=== PATIENT | male | born 1995 | race Caucasian/White ===

== ENCOUNTER → 2016-08-11 | Outpatient (REF) | payer BC ==
[2016-08-11 12:09] LABS: ALBUMIN 4.4 GM/DL (3.2-5.2); ALBUMIN/GLOBULIN RATIO 1.26 (1.00-1.93); ALKALINE PHOSPHATASE 69 U/L (45-117); ALT/SGPT 83 U/L (12-78); ANION GAP 11 MEQ/L (8-16); AST/SGOT 47 U/L (15-37); BILIRUBIN,TOTAL 0.6 MG/DL (0.2-1.0); BLOOD UREA NITROGEN 16 MG/DL (7-18); CARBON DIOXIDE LEVEL 26 MEQ/L (21-32); CHLORIDE LEVEL 105 MEQ/L (98-107); CHOLESTEROL LEVEL 258 MG/DL (<200); CREATININE FOR GFR 1.07 MG/DL (0.70-1.30); GLOMERULAR FILTRATION RATE > 60.0 (>60); GLUCOSE, FASTING 86 MG/DL (70-105); POTASSIUM SERUM 4.1 MEQ/L (3.5-5.1); SODIUM LEVEL 142 MEQ/L (136-145); TOTAL PROTEIN 7.9 GM/DL (6.4-8.2); TRIGLYCERIDES LEVEL 206 MG/DL (<150)
== END ==
LOC: M LABDRAW1 11:10
PROVIDERS: ATTEND Physician Assistant
DX: E78.2 Mixed hyperlipidemia (principal)

== ENCOUNTER → 2016-11-09 | Outpatient (REF) | payer BC ==
[2016-11-09 12:57] LABS: ALBUMIN 4.1 GM/DL (3.2-5.2); ALBUMIN/GLOBULIN RATIO 1.17 (1.00-1.93); ALKALINE PHOSPHATASE 68 U/L (45-117); ALT/SGPT 56 U/L (12-78); ANION GAP 8 MEQ/L (8-16); AST/SGOT 36 U/L (15-37); BILIRUBIN,TOTAL 0.6 MG/DL (0.2-1.0); BLOOD UREA NITROGEN 13 MG/DL (7-18); CARBON DIOXIDE LEVEL 28 MEQ/L (21-32); CHLORIDE LEVEL 104 MEQ/L (98-107); CHOLESTEROL LEVEL 232 MG/DL (<200); CREATININE FOR GFR 0.98 MG/DL (0.70-1.30); GLOMERULAR FILTRATION RATE > 60.0 (>60); GLUCOSE, FASTING 87 MG/DL (70-105); POTASSIUM SERUM 4.1 MEQ/L (3.5-5.1); SODIUM LEVEL 140 MEQ/L (136-145); TOTAL PROTEIN 7.6 GM/DL (6.4-8.2); TRIGLYCERIDES LEVEL 223 MG/DL (<150)
== END ==
LOC: M LABDRAW1 11:49
PROVIDERS: ATTEND Family Medicine

== ENCOUNTER 2016-12-08 14:19 | Emergency (ER) | payer BC ==
[~2016-12-08] VITALS: Ht 182.9 cm; Wt 117.9 kg
[2016-12-08] MEDS ORDERED: BUPR150T3 PO (14:39)
[2016-12-08] MEDS ORDERED: LANS30CA PO (14:39)
[2016-12-08] MEDS ORDERED: VITA50003 PO (14:39)
[2016-12-08] MEDS ORDERED: ESCI10TA2 PO (14:39)
[2016-12-08] MEDS ORDERED: VITA10006 PO (14:39)
[2016-12-08] MEDS ORDERED: MULT1CHW39 PO (14:39)
[2016-12-08] MEDS ORDERED: FISH1000 PO (14:39)
--- NOTE | 2016-12-08 15:13 | REP ---
Chest one-view HISTORY: Chest pain Comparison: None The lungs are clear. The heart is normal in size. The pulmonary vasculature is normal in appearance. Impression: No acute disease. Signed by Francis Vieyra MD 12/08/2016 03:05 P
[2016-12-08] MEDS ORDERED: holter monitor (17:00)
[2016-12-08] MEDS ORDERED: mis (17:00)
[2016-12-08 17:16] VITALS: BP 137/70
--- NOTE | 2016-12-10 14:35 | ECGEPIP ---
Stationary ECG Study [facility] - ED Test Date: 2016-12-08 Pat Name: RUBA HERNANDEZ Department: Room: - Gender: M Health Care Sanitary Technician: gabriel : 1995 Requested By: WESLEY Colby Order Number: [id number] Reading MD: Francoies Padron Measurements Intervals [place] Rate: 61 P: 51 MO: 198 QRS: 51 QRSD: 98 T: 29 QT: 411 QTc: 415 Interpretive Statements SINUS RHYTHM WITH MARKED SINUS ARRHYTHMIA Electronically Signed On 12-10-2016 14:35:33 EDT by Francoise Padron
== END 2016-12-08 17:18 | disposition home or self-care (01) ==
LOC: EDBD 14:19 → M ED 15:21
DX: R00.2 Palpitations (principal)

== ENCOUNTER → 2016-12-20 | Outpatient (CLI) | payer BC ==
[~2016-12-20] MED LIST: BUPR150T3 PO; ESCI10TA2 PO; FISH1000 PO; LANS30CA PO; MULT1CHW39 PO; VITA10006 PO; VITA50003 PO; holter monitor; mis
--- NOTE | 2016-12-28 14:15 | HOLTMON ---
[facility] Test Date: 2016-12-20 Pat Name: RUBA HERNANDEZ Department: Room: - Gender: Territory Sales Manager: CARLA JIMENES : 1995 Requested By: WESLEY Colby Order Number: [id number] Reading MD: Farooq Banda Interpretive Statements Underlying sinus rhythm with rate varying from 34 bpm at 1:08 AM, and 138 bpm at 12:51 PM, averaging 74 bpm. 2 isolated PACs but no PSVT. No ventricular ectopic activity. No significant diurnal bradycardia or pause. The patient made 11 diary entries noting "dizziness, shortness of breath, chest discomfort, and nausea" that did not appear to correlate with any arrhythmia or rate change. Electronically Signed On 12-28-2016 14:15:23 EDT by Farooq Banda
== END ==
LOC: M EKG 12-14 14:13
PROVIDERS: ATTEND Emergency Medicine
DX: R07.9 Chest pain, unspecified (principal)

== ENCOUNTER → 2017-01-29 | Outpatient (REF) | payer BC ==
[2017-01-29 16:25] LABS: FREE T4 0.96 NG/DL (0.76-1.46)
[2017-01-29 16:35] LABS: BASO % 0.3 % (0.0-1.0); EOS # 0.1 K/mm3 (0.0-0.50); EOS % 1.2 % (0.0-3.0); LARGE UNSTAINED CELL # 0.1 K/mm3 (0.0-0.4); LARGE UNSTAINED CELL % 1.3 % (0.0-4.0); LYMPH % 26.8 % (24.0-44.0); MEAN CORPUSCULAR HEMOGLOBIN 31.6 pg (27.0-33.0); MEAN CORPUSCULAR HGB CONC 35.1 g/dl (32.0-36.5); MEAN CORPUSCULAR VOLUME 90.3 fl (80.0-96.0); MONO # 0.4 K/mm3 (0.0-0.8); NEUTROPHILS # 4.8 K/mm3 (1.8-7.7); NEUTROPHILS % 65.3 % (36.0-66.0); PLATELET COUNT, AUTOMATED 191 k/mm3 (150-450); RED CELL DISTRIBUTION WIDTH 12.1 % (11.5-14.5); WHITE BLOOD COUNT 7.3 K/mm3 (4.0-10.0)
== END ==
LOC: M LAB 15:43
PROVIDERS: ATTEND Family Medicine
DX: F41.1 Generalized anxiety disorder (principal)

== ENCOUNTER → 2017-08-23 | Outpatient (REF) | payer BC | LOC: M LAB REF 16:58 | DX: J02.9 Acute pharyngitis, unspecified (principal) | CPT/HCPCS: 87070 ==

== ENCOUNTER → 2017-11-20 | Outpatient (REF) | payer BC | LOC: M LAB REF 17:21 | DX: J03.80 Acute tonsillitis due to other specified organisms (principal) | CPT/HCPCS: 87070 ==

== ENCOUNTER → 2020-10-04 | Outpatient (REF) | payer BC ==
[~2020-10-04] MED LIST changes: +BUPR150T12 PO; -BUPR150T3 PO; +ESCI10TA16 PO; -ESCI10TA2 PO; -MULT1CHW39 PO; +MULT200T7 PO; -VITA50003 PO; +VITA50005 PO
== END ==
LOC: M LAB REF 17:33
PROVIDERS: ATTEND Physician Assistant
DX: J06.9 Acute upper respiratory infection, unspecified (principal)

== ENCOUNTER → 2021-09-09 | Outpatient (CLI) | payer BC | LOC: M SLEEP HO 09:40 | PROVIDERS: ATTEND Physician Assistant | DX: G47.10 Hypersomnia, unspecified (principal) ==

== ENCOUNTER 2024-02-15 16:12 | Inpatient (IN) | payer BC, SELFPAY ==
[~2024-02-15] VITALS: Ht 185.4 cm; Wt 145.9 kg
[~2024-02-15 16:12] MED LIST changes: -ACET1TAB55 PO; -ALPR0.25 PO; -AMOX875T2 PO; -COLA100C5 PO; -GASTROGRAFIN SOLUTION 30ML As Ordered ONE; -ISOVUE-370 76% 100ML VIAL As Ordered ONE; -MIRA33506 PO; -ONETAB9 PO; -PANT40TA29 PO; -PERCOCET PO; -PROB250C PO; -VENL150C43 PO
[2024-02-15] MEDS ORDERED: PANT40TA29 PO (16:27)
[2024-02-15] MEDS: PIPERACILLIN/TAZOBACTAM SOD 3.375 GM in D5W MINI-BAG PLUS 50 ML IV ONE (19:00)
[2024-02-15] MEDS: LORazepam 2 MG/ML 1ML VIAL IV STA (19:01)
[2024-02-15] MEDS: NS 1,000 ML IV ONE (19:01)
[2024-02-15 19:03] LABS: BASO % 0.3 % (0.0-1.0); EOS # 0.2 10^3/uL (0.0-0.5); EOS % 1.9 % (0.0-3.0); HEMATOCRIT 44.9 % (42.0-52.0); HEMOGLOBIN 15.3 g/dl (13.5-17.5); LYMPH # 1.9 10^3/uL (1.5-5.0); LYMPH % 15.8 % (24.0-44.0); MEAN CORPUSCULAR HEMOGLOBIN 30.3 pg (27.0-33.0); MEAN CORPUSCULAR HGB CONC 34.1 g/dl (32.0-36.5); MEAN CORPUSCULAR VOLUME 88.9 fl (80.0-96.0); MONO # 0.8 10^3/uL (0.0-0.8); MONO % 6.9 % (2.0-8.0); NEUTROPHILS # 8.9 10^3/uL (1.5-8.5); NEUTROPHILS % 74.8 % (36.0-66.0); PLATELET COUNT, AUTOMATED 243 10^3/uL (150-450); RED BLOOD COUNT 5.05 10^6/uL (4.30-6.10); WHITE BLOOD COUNT 11.8 10^3/uL (4.0-10.0)
[2024-02-15 19:10] LABS: LIPASE 20 U/L (12-53)
[2024-02-15 19:12] LABS: ALBUMIN 4.2 G/DL (3.2-5.2); ALKALINE PHOSPHATASE 99 U/L (46-116); ALT/SGPT 56 U/L (7.0-40); AST/SGOT 33 U/L (<34); BILIRUBIN,DIRECT 0.2 MG/DL (<0.4); BILIRUBIN,TOTAL 0.6 MG/DL (0.3-1.2); BLOOD UREA NITROGEN 10 MG/DL (9-23); CARBON DIOXIDE LEVEL 27 MMOL/L (20-31); CHLORIDE LEVEL 103 MMOL/L (98-107); CREATININE FOR GFR 0.95 MG/DL (0.70-1.30); GLOMERULAR FILTRATION RATE > 60.0 (>60); GLUCOSE, FASTING 88 MG/DL (60-100); POTASSIUM SERUM 4.3 MMOL/L (3.5-5.1); SODIUM LEVEL 137 MMOL/L (136-145); TOTAL PROTEIN 7.6 G/DL (5.7-8.2)
[2024-02-15] MEDS: NS 1,000 ML IV SCH ×2 (20:40→23:15)
[2024-02-15 20:47] LABS: BASO % 0.3 % (0.0-1.0); EOS # 0.3 10^3/uL (0.0-0.5); EOS % 2.3 % (0.0-3.0); HEMATOCRIT 41.2 % (42.0-52.0); HEMOGLOBIN 14.1 g/dl (13.5-17.5); LYMPH # 2.5 10^3/uL (1.5-5.0); LYMPH % 19.6 % (24.0-44.0); MEAN CORPUSCULAR HEMOGLOBIN 30.3 pg (27.0-33.0); MEAN CORPUSCULAR HGB CONC 34.2 g/dl (32.0-36.5); MEAN CORPUSCULAR VOLUME 88.6 fl (80.0-96.0); MONO # 0.9 10^3/uL (0.0-0.8); MONO % 7.1 % (2.0-8.0); NEUTROPHILS # 8.8 10^3/uL (1.5-8.5); NEUTROPHILS % 70.4 % (36.0-66.0); PLATELET COUNT, AUTOMATED 231 10^3/uL (150-450); RED BLOOD COUNT 4.65 10^6/uL (4.30-6.10); WHITE BLOOD COUNT 12.5 10^3/uL (4.0-10.0)
[2024-02-15] MEDS ORDERED: ALPR0.25 PO (20:55)
[2024-02-15] MEDS ORDERED: VENL150C43 PO (20:55)
[2024-02-15] MEDS ORDERED: ONETAB9 PO (20:55)
[2024-02-15] MEDS ORDERED: HOME MED LIST COMPLETE! XX SCH (21:00)
[2024-02-15] MEDS: HYDROMORPHONE HCL 0.5 MG/ 0.5 ML SYRINGE IV PRN (21:02)
[2024-02-15 21:50] VITALS: BP 139/81; TEMP 98.1; O2SAT 96
[2024-02-16] VITALS (10 sets, daily range): BP systolic 119–146; BP diastolic 74–97; TEMP 97–99.8; O2SAT 92–96
[2024-02-16] MEDS: LORazepam 0.5 MG TAB PO ONE (00:11)
[2024-02-16] MEDS: PIPERACILLIN/TAZOBACTAM SOD 3.375 GM in D5W MINI-BAG PLUS 50 ML IV SCH (00:11)
[2024-02-16] MEDS: NICOTINE 14 MG/24 HR TRANSDERMAL TD PRN (02:52)
[2024-02-16 07:07] LABS: ALBUMIN 3.4 G/DL (3.2-5.2); ALKALINE PHOSPHATASE 91 U/L (46-116); ALT/SGPT 48 U/L (7.0-40); AST/SGOT 27 U/L (<34); BILIRUBIN,TOTAL 0.7 MG/DL (0.3-1.2); BLOOD UREA NITROGEN 11 MG/DL (9-23); CALCIUM LEVEL 8.7 MG/DL (8.5-10.1); CARBON DIOXIDE LEVEL 28 MMOL/L (20-31); CHLORIDE LEVEL 106 MMOL/L (98-107); CREATININE FOR GFR 1.07 MG/DL (0.70-1.30); GLOMERULAR FILTRATION RATE > 60.0 (>60); GLUCOSE, FASTING 87 MG/DL (60-100); POTASSIUM SERUM 4.3 MMOL/L (3.5-5.1); SODIUM LEVEL 139 MMOL/L (136-145); TOTAL PROTEIN 6.6 G/DL (5.7-8.2)
[2024-02-16] MEDS: PANTOPRAZOLE 40MG VIAL IV SCH (07:47)
[2024-02-16] MEDS ORDERED: propofoL 200 MG/20 ML VIAL As Ordered ONE (07:58)
[2024-02-16] MEDS ORDERED: LIDOCAINE 2% 100MG/5ML SDV (FOR ANES.) As Ordered ONE (07:58)
[2024-02-16] MEDS ORDERED: ROCURONIUM BROMIDE 50MG/5ML VIAL As Ordered ONE (07:58)
[2024-02-16] MEDS ORDERED: MIDAZOLAM INJ 2MG/2ML VIAL As Ordered ONE (07:58)
[2024-02-16] MEDS ORDERED: fentaNYL 250 MCG/5 ML INJECTION As Ordered ONE (07:58)
[2024-02-16] MEDS ORDERED: ONDANSETRON 4MG 2ML VIAL As Ordered ONE (08:45)
[2024-02-16] MEDS ORDERED: SUGAMMADEX SODIUM 500 MG/5 ML VIAL (BRIDION) As Ordered ONE (08:52)
[2024-02-16] MEDS ORDERED: ACETAMINOPHEN 1000MG 100ML IV BAG As Ordered ONE (08:52)
[2024-02-16] MEDS ORDERED: KETOROLAC 60MG 2ML VIAL As Ordered ONE (09:07)
[2024-02-16] MEDS ORDERED: INDOCYANINE GREEN 25MG VIAL (IC-GREEN) As Ordered ONE (10:47)
[2024-02-16] MEDS ORDERED: fentaNYL 100 MCG/2 ML INJECTION As Ordered ONE (12:08)
[2024-02-16] MEDS: LR 1,000 ML IV SCH (12:55)
[2024-02-16] MEDS ORDERED: fentaNYL 100 MCG/2 ML INJECTION IV PRN (12:55)
[2024-02-16] MEDS ORDERED: ONDANSETRON 4MG 2ML VIAL IV PRN ×2 (12:55→15:00)
[2024-02-16] MEDS ORDERED: oxyCODONE 5MG TAB PO PRN (12:55)
[2024-02-16] MEDS ORDERED: MEPERIDINE 25 MG/ML 1ML VIAL IV PRN (12:55)
[2024-02-16] MEDS ORDERED: diphenhydrAMINE 50MG/ML VIAL IV PRN (12:55)
[2024-02-16] MEDS ORDERED: HYDROMORPHONE HCL 0.5 MG/ 0.5 ML SYRINGE IV PRN (12:55)
[2024-02-16] MEDS ORDERED: METOCLOPRAMIDE INJ 10MG/2ML VIAL IV PRN (12:55)
[2024-02-16] MEDS ORDERED: ALPRAZolam 0.25 MG TAB PO PRN (14:20)
[2024-02-16] MEDS: ENOXAPARIN 40MG/0.4ML SYRINGE (J1650 PER 10MG) SC SCH (16:05)
[2024-02-16 16:46] LABS: INR 1.06; PROTHROMBIN TIME 13.5 SECONDS (12.5-14.5)
[2024-02-16] MEDS: MORPHINE 2 MG/ML 1ML VIAL IV PRN (17:53)
[2024-02-16] MEDS ORDERED: MIRALAX *UNIT DOSE* 17GM PACKET PO PRN (18:40)
[2024-02-16] MEDS: DOCUSATE SODIUM 100MG CAPSULE PO SCH (20:25)
[2024-02-16] MEDS: VENLAFAXINE **XR** 75MG CAPSULE PO SCH (20:26)
[2024-02-16] MEDS: SENNA 8.6 MG TAB (SENOKOT) PO SCH (20:26)
[2024-02-16] MEDS: KETOROLAC 30 MG/ML 1ML VIAL IV SCH (20:28)
[2024-02-17 00:20] VITALS: BP 119/71; TEMP 99.4; O2SAT 90
[2024-02-17] MEDS: MORPHINE 4 MG/ML 1ML VIAL IV PRN (00:41)
[2024-02-17 04:00] VITALS: BP 131/86; TEMP 98.6; O2SAT 93
[2024-02-17 06:43] LABS: HEMATOCRIT 37.6 % (42.0-52.0); HEMOGLOBIN 12.6 g/dl (13.5-17.5); MEAN CORPUSCULAR HEMOGLOBIN 30.2 pg (27.0-33.0); MEAN CORPUSCULAR HGB CONC 33.5 g/dl (32.0-36.5); MEAN CORPUSCULAR VOLUME 90.2 fl (80.0-96.0); PLATELET COUNT, AUTOMATED 263 10^3/uL (150-450); RED BLOOD COUNT 4.17 10^6/uL (4.30-6.10); WHITE BLOOD COUNT 12.4 10^3/uL (4.0-10.0)
[2024-02-17 07:07] LABS: ALBUMIN 3.3 G/DL (3.2-5.2); ALKALINE PHOSPHATASE 82 U/L (46-116); ALT/SGPT 43 U/L (7.0-40); AST/SGOT 27 U/L (<34); BILIRUBIN,TOTAL 0.7 MG/DL (0.3-1.2); BLOOD UREA NITROGEN 12 MG/DL (9-23); CALCIUM LEVEL 8.6 MG/DL (8.5-10.1); CARBON DIOXIDE LEVEL 24 MMOL/L (20-31); CHLORIDE LEVEL 104 MMOL/L (98-107); CREATININE FOR GFR 0.92 MG/DL (0.70-1.30); GLOMERULAR FILTRATION RATE > 60.0 (>60); GLUCOSE, FASTING 99 MG/DL (60-100); SODIUM LEVEL 137 MMOL/L (136-145); TOTAL PROTEIN 6.6 G/DL (5.7-8.2)
[2024-02-17 08:00] VITALS: BP 133/87; TEMP 97.7; O2SAT 95
[2024-02-17 12:00] VITALS: BP 122/68; TEMP 98.1; O2SAT 94
[2024-02-17] MEDS ORDERED: PERCOCET 5MG/325MG TAB PO PRN (14:05)
[2024-02-17] MEDS: ACETAMINOPHEN TAB 650MG DOSE (2X325MG) PO SCH (15:01)
[2024-02-17 20:54] VITALS: BP 124/63; TEMP 98.1; O2SAT 95
[2024-02-18] MEDS: PERCOCET 5MG/325MG TAB PO PRN (00:04)
[2024-02-18 04:00] VITALS: BP 129/69; TEMP 97.7; O2SAT 94
[2024-02-18] MEDS ORDERED: PROB250C PO (07:52)
[2024-02-18] MEDS ORDERED: AMOX875T2 PO (07:52)
[2024-02-18] MEDS ORDERED: COLA100C5 PO (07:52)
[2024-02-18] MEDS ORDERED: PERCOCET PO (07:52)
[2024-02-18] MEDS ORDERED: MIRA33506 PO (07:52)
[2024-02-18] MEDS ORDERED: ACET1TAB55 PO (07:52)
[2024-02-18 10:15] LABS: HEMATOCRIT 35.2 % (42.0-52.0); HEMOGLOBIN 11.6 g/dl (13.5-17.5); PLATELET COUNT, AUTOMATED 197 10^3/uL (150-450); RED BLOOD COUNT 3.87 10^6/uL (4.30-6.10); WHITE BLOOD COUNT 6.3 10^3/uL (4.0-10.0)
[2024-02-18 10:50] LABS: ALKALINE PHOSPHATASE 68 U/L (46-116); ALT/SGPT 39 U/L (7.0-40); AST/SGOT 23 U/L (<34); BILIRUBIN,TOTAL 0.4 MG/DL (0.3-1.2); BLOOD UREA NITROGEN 12 MG/DL (9-23); CALCIUM LEVEL 8.1 MG/DL (8.5-10.1); CARBON DIOXIDE LEVEL 25 MMOL/L (20-31); CHLORIDE LEVEL 109 MMOL/L (98-107); GLOMERULAR FILTRATION RATE > 60.0 (>60); GLUCOSE, FASTING 121 MG/DL (60-100); POTASSIUM SERUM 3.6 MMOL/L (3.5-5.1); SODIUM LEVEL 141 MMOL/L (136-145)
== END 2024-02-18 11:12 | disposition home or self-care (01) | DRG 221 ==
LOC: M ED 16:12 → M ED INP 19:52 → M MSPAV 21:43
PROVIDERS: ADMIT Internal Medicine; ATTEND Internal Medicine
PROC: 0DBH4ZZ Excision of Cecum, Percutaneous Endoscopic Approach (ICD-10-PCS; 2024-02-16)
PROC: 8E0W4CZ Robotic Assisted Procedure of Trunk Region, Percutaneous Endoscopic Approach (ICD-10-PCS; 2024-02-16)
PROC: 0DBB4ZZ Excision of Ileum, Percutaneous Endoscopic Approach (ICD-10-PCS; principal; 2024-02-16 08:00)
DX: K35.80 Unspecified acute appendicitis (principal); Z68.41 Body mass index [BMI] 40.0-44.9, adult; E66.9 Obesity, unspecified; F17.290 Nicotine dependence, other tobacco product, uncomplicated; Z79.899 Other long term (current) drug therapy; F41.9 Anxiety disorder, unspecified; K21.9 Gastro-esophageal reflux disease without esophagitis; B95.5 Unspecified streptococcus as the cause of diseases classified elsewhere

== ENCOUNTER → 2024-02-15 | Outpatient (CLI) | payer BC ==
[~2024-02-15] MED LIST changes: +ACET1TAB55 PO; +ALPR0.25 PO; +AMOX875T2 PO; +COLA100C5 PO; +GASTROGRAFIN SOLUTION 30ML As Ordered ONE; +ISOVUE-370 76% 100ML VIAL As Ordered ONE; +MIRA33506 PO; +ONETAB9 PO; +PANT40TA29 PO; +PERCOCET PO; +PROB250C PO; +VENL150C43 PO
== END ==
LOC: M RAD 11:42
PROVIDERS: ATTEND Nurse Practitioner Family
DX: R10.9 Unspecified abdominal pain (principal)
CPT/HCPCS: 74177; Q9963; Q9967

== ENCOUNTER → 2024-04-30 | Outpatient (CLI) | payer BC ==
[~2024-04-30] MED LIST changes: +ACET1TAB55 PO; +ALPR0.25 PO; +AMOX875T2 PO; +COLA100C5 PO; +MIRA33506 PO; +ONETAB9 PO; +PANT40TA29 PO; +PERCOCET PO; +PROB250C PO; +VENL150C43 PO
== END ==
LOC: M WUC 14:35
PROVIDERS: ATTEND Internal Medicine
DX: R05.9 Cough, unspecified (principal); R06.02 Shortness of breath

== ENCOUNTER → 2024-07-11 | Outpatient (REF) | payer BC ==
[~2024-07-11] MED LIST changes: -MULT200T7 PO; +MULT200T9 PO
[2024-07-13 03:57] LABS: LDL DIRECT 97 mg/dL (<100)
== END ==
LOC: M LAB REF 12:39
PROVIDERS: ATTEND Nurse Practitioner Family
DX: E78.2 Mixed hyperlipidemia (principal)

== ENCOUNTER → 2025-03-31 | Outpatient (CLI) | payer BC ==
[~2025-03-31] MED LIST changes: +E-Z-GAS II EFFERVESCENT PACKET (SODIUM BICARB./CITRIC ACID/SIMETHICONE) As Ordered ONE; +E-Z-HD 98% w/w 340 GM SUSP BTL As Ordered ONE; +E-Z-PAQUE 96% w/w SUSP 176 GM BTL As Ordered ONE
== END ==
LOC: M RAD 10:31
PROVIDERS: ATTEND Internal Medicine Gastroenterology
DX: K21.9 Gastro-esophageal reflux disease without esophagitis (principal); K76.0 Fatty (change of) liver, not elsewhere classified; R19.7 Diarrhea, unspecified; L29.0 Pruritus ani

== ENCOUNTER → 2025-05-15 | Outpatient (REF) | payer BC ==
[~2025-05-15] MED LIST changes: -E-Z-GAS II EFFERVESCENT PACKET (SODIUM BICARB./CITRIC ACID/SIMETHICONE) As Ordered ONE; -E-Z-HD 98% w/w 340 GM SUSP BTL As Ordered ONE; -E-Z-PAQUE 96% w/w SUSP 176 GM BTL As Ordered ONE
[2025-05-20 17:11] LABS: TESTOSTERONE FREE (DIRECT) 68.0 pg/mL (35.0-155.0); TESTOSTERONE TOTAL FOR T&D 282.0 ng/dL (250-1100)
== END ==
LOC: M LAB REF 12:01
PROVIDERS: ATTEND Internal Medicine
DX: R53.83 Other fatigue (principal); R68.82 Decreased libido